=== PATIENT | male | born 1985 ===

== ENCOUNTER 2021-02-01 05:00 | Emergency (ER) | payer SELFPAY ==
[~2021-02-01] VITALS: Ht 180.3 cm; Wt 114.8 kg
[2021-02-01 05:05] VITALS: BP 133/81
--- NOTE | 2021-02-01 05:33 | NUR ---
Patient ambulatory with steady gait. NAD, all questions answered appropriately, denies additional needs at this time. No personal belongings left in room after discharge.
== END 2021-02-01 05:35 | disposition left against medical advice (07) ==
LOC: ED 05:30
DX: R19.7 Diarrhea, unspecified (principal); Z53.21 Procedure and treatment not carried out due to patient leaving prior to being seen by health care provider